=== PATIENT | male | born 2000 | race Caucasian/White ===

== ENCOUNTER 2019-08-14 09:47 | Emergency (ER) | payer OTHER ==
[~2019-08-14] VITALS: Ht 180.3 cm; Wt 102.6 kg
[2019-08-14] MEDS ORDERED: ACETAMINOPHEN 500 MG TAB PO ONE (10:15)
[2019-08-14 11:44] LABS: INFLUENZA A AMPLIFICATION NEGATIVE (NEGATIVE); INFLUENZA B AMPLIFICATION NEGATIVE (NEGATIVE)
[2019-08-14] MEDS ORDERED: CEFD1CAP8 PO (11:58)
[2019-08-14] MEDS ORDERED: CEFDINIR 300 MG CAP (OMNICEF) PO ONE (12:15)
[2019-08-14 12:25] VITALS: BP 131/65
== END 2019-08-14 12:29 | disposition home or self-care (01) ==
LOC: M ED 09:47
DX: J02.9 Acute pharyngitis, unspecified (principal); F17.200 Nicotine dependence, unspecified, uncomplicated